=== PATIENT | female | born 1970 | race Caucasian/White ===

== ENCOUNTER 2018-10-08 00:57 | Emergency (ER) | payer SELFPAY ==
[2018-10-08] MEDS ORDERED: LISI20TA29 PO (01:12)
[2018-10-08] MEDS ORDERED: ASPI-1471 PO (01:12)
--- NOTE | 2018-10-08 01:17 | ER Report ---
History and Physical Time Seen By MD: 01:17 Hx. of Stated Complaint: PT REPORTS FEELING ANXIOUS AND THAT SOMETHING JUST HAS NOT FELT RIGHT SINCE YESTERDAY. SHE ALSO REPORTS HEART RACING. PT VISITING FROM [place]. HPI/ROS CHIEF COMPLAINT: Chest fluttering and pressure HISTORY OF PRESENT ILLNESS: This is a 48-year-old female. She is visiting here from [place], moving her daughter out of the dorms at the [facility]. Tonight while trying to sleep, she felt a fluttering feeling in her chest as well as a little bit of pressure. Because of this, she could not sleep. Her mother has a history of dying at age 55 from heart problems. She does see a log stacker operator and has had echocardiogram and other workup which has been negative to date. She does take some lisinopril for blood pressure and blood pressures a little elevated right now. She is not feeling major shortness of breath but is at altitude, has not had any problems when she is visited briefly on prior occasions. No fevers or chills. She does have mild cold symptoms and a cough. Cough is nonproductive. Denies any nausea or vomiting. Allergies: Coded Allergies: No Known Drug Allergies (Unverified , 10/08/18) Home Meds Reported Medications Aspirin (ASPIR 81) 81 Mg Tablet.dr, 81 MG PO QDAY, TAB 10/08/18 Lisinopril (LISINOPRIL) 20 Mg Tablet, 20 MG PO QDAY, TAB 10/08/18 Reviewed Nurses Notes: Yes Hx Substance Use Disorder: No Constitutional Vital Sign - Last 24 Hours 10/08/18 10/08/18 10/08/18 10/08/18 01:06 01:08 01:12 01:27 Temp 98.5 Pulse 99 97 90 Resp 16 9 B/P (MAP) 164/105 164/105 (124) Pulse Ox 90 95 98 O2 Delivery Room Air 10/08/18 10/08/18 10/08/18 10/08/18 01:30 01:42 01:47 02:00 Pulse 95 95 Resp 14 B/P (MAP) 141/91 (108) 135/90 (105) Pulse Ox 93 10/08/18 10/08/18 10/08/18 10/08/18 02:02 02:17 02:30 02:32 Pulse 88 91 87 Resp 16 5 14 B/P (MAP) 139/95 (110) Pulse Ox 92 90 90 Physical Exam General Appearance: The patient is alert. No acute distress. Eyes: Pupils are equal, round. No pallor, injection or icterus. ENT: Mucous membranes are moist. Normal oral mucosa. Posterior oropharynx is normal. Neck: Supple and non tender. Respiratory: Lungs are clear to auscultation. Cardiovascular: Regular rate and rhythm. No murmurs, gallops or rubs. Normal capillary refill. Trace edema lower extremity/ankles bilaterally. Gastrointestinal: Abdomen is soft and non tender. Nondistended. Neurological: Alert and oriented x3. Skin: Warm and dry. No rashes. DIFFERENTIAL DIAGNOSIS: After history and physical exam, differential diagnosis was considered for patient with palpitations and some chest pressure, possibly altitude related, possible anxiety related, we will check for other cardiac or other metabolic problem Medical Decision Making Data Points Result Diagram: 10/08/18 0150 10/08/18 0150 Laboratory Hematology Test 10/08/18 01:50 Red Blood Count 5.07 M/uL (4.17-5.56) Mean Corpuscular Volume 82.8 fL (80.0-96.0) Mean Corpuscular Hemoglobin 27.6 pg (26.0-33.0) Mean Corpuscular Hemoglobin Concent 33.3 g/dL (32.0-36.0) Red Cell Distribution Width 14.8 % (11.5-14.5) Mean Platelet Volume 9.2 fL (7.2-11.1) Neutrophils (%) (Auto) 62.4 % (39.4-72.5) Lymphocytes (%) (Auto) 25.8 % (17.6-49.6) Monocytes (%) (Auto) 9.7 % (4.1-12.4) Eosinophils (%) (Auto) 1.4 % (0.4-6.7) Basophils (%) (Auto) 0.7 % (0.3-1.4) Nucleated RBC Relative Count (auto) 0.0 /100WBC Neutrophils # (Auto) 4.0 K/uL (2.0-7.4) Lymphocytes # (Auto) 1.6 K/uL (1.3-3.6) Monocytes # (Auto) 0.6 K/uL (0.3-1.0) Eosinophils # (Auto) 0.1 K/uL (0.0-0.5) Basophils # (Auto) 0.0 K/uL (0.0-0.1) Nucleated RBC Absolute Count (auto) 0.00 K/uL D-Dimer Quantitative (PE/DVT) < 0.27 ug/ml (0-0.50) Sodium Level 138 mmol/L (137-145) Potassium Level 3.6 mmol/L (3.5-5.0) Chloride Level 104 mmol/L (98-107) Carbon Dioxide Level 27 mmol/L (22-31) Blood Urea Nitrogen 11 mg/dl (7-18) Creatinine 0.80 mg/dl (0.52-1.04) Glomerular Filtration Rate Calc > 60.0 Random Glucose 107 mg/dl (75-110) Calcium Level 9.3 mg/dl (8.4-10.2) Total Bilirubin 0.2 mg/dl (0.2-1.3) Aspartate Amino Transf (AST/SGOT) 20 U/L (0-35) Alanine Aminotransferase (ALT/SGPT) 18 U/L (0-56) Alkaline Phosphatase 83 U/L (0-126) Troponin I < 0.012 ng/ml B-Type Natriuretic Peptide < 5 pg/ml (0-100) Total Protein 7.3 g/dl (6.3-8.2) Albumin 4.1 g/dl (3.5-5.0) Chemistry Test 10/08/18 01:50 White Blood Count 6.4 k/uL (4.5-11.0) Red Blood Count 5.07 M/uL (4.17-5.56) Hemoglobin 14.0 g/dL (12.0-16.0) Hematocrit 42.0 % (34.0-47.0) Mean Corpuscular Volume 82.8 fL (80.0-96.0) Mean Corpuscular Hemoglobin 27.6 pg (26.0-33.0) Mean Corpuscular Hemoglobin Concent 33.3 g/dL (32.0-36.0) Red Cell Distribution Width 14.8 % (11.5-14.5) Platelet Count 241 K/uL (150-450) Mean Platelet Volume 9.2 fL (7.2-11.1) Neutrophils (%) (Auto) 62.4 % (39.4-72.5) Lymphocytes (%) (Auto) 25.8 % (17.6-49.6) Monocytes (%) (Auto) 9.7 % (4.1-12.4) Eosinophils (%) (Auto) 1.4 % (0.4-6.7) Basophils (%) (Auto) 0.7 % (0.3-1.4) Nucleated RBC Relative Count (auto) 0.0 /100WBC Neutrophils # (Auto) 4.0 K/uL (2.0-7.4) Lymphocytes # (Auto) 1.6 K/uL (1.3-3.6) Monocytes # (Auto) 0.6 K/uL (0.3-1.0) Eosinophils # (Auto) 0.1 K/uL (0.0-0.5) Basophils # (Auto) 0.0 K/uL (0.0-0.1) Nucleated RBC Absolute Count (auto) 0.00 K/uL D-Dimer Quantitative (PE/DVT) < 0.27 ug/ml (0-0.50) Glomerular Filtration Rate Calc > 60.0 Calcium Level 9.3 mg/dl (8.4-10.2) Total Bilirubin 0.2 mg/dl (0.2-1.3) Aspartate Amino Transf (AST/SGOT) 20 U/L (0-35) Alanine Aminotransferase (ALT/SGPT) 18 U/L (0-56) Alkaline Phosphatase 83 U/L (0-126) Troponin I < 0.012 ng/ml B-Type Natriuretic Peptide < 5 pg/ml (0-100) Total Protein 7.3 g/dl (6.3-8.2) Albumin 4.1 g/dl (3.5-5.0) Coagulation Test 10/08/18 01:50 D-Dimer Quantitative (PE/DVT) < 0.27 ug/ml EKG/Imaging EKG Interpretation 12 lead EKG: Rhythm: Normal sinus rhythm, rate 84 [place]: normal QRS: normal ST segments: normal Imaging CHEST SINGLE AP 10/08/2018 02:14 hours. HISTORY: Chest pain for one day. Cough. COMPARISON: None. TECHNIQUE: Portable AP view of the chest. FINDINGS: Tubes/lines/hardware: None. Pulmonary/pleura: Lungs are clear. There is no pneumothorax or pleural effusion. Cardiomediastinal: Cardiac and mediastinal silhouettes are within normal limits. Bones/soft tissues: No acute osseous abnormality. The visible abdomen is normal. IMPRESSION: 1. No acute cardiopulmonary process. Report Dictated By: Ghada Evans at 10/08/2018 2:17 AM ED Course/Re-evaluation Clinical Indication for ER IV: IV Access ED Course Workup including labs, EKG and chest x-ray are negative. Reviewed this with the patient. Unsure why she is feeling palpitations. Heart rhythm has been normal on heart monitor. She will be returning to [place] later this morning. No changes in medication. Blood pressure and essentially elevated but has come down well. Decision to Disposition Date: October 08, 2018 Decision to Disposition Time: 02:34 Depart Departure Latest Vital Signs Vital Signs Date Time Temp Pulse Resp B/P (MAP) Pulse Ox O2 Delivery O2 Flow Rate FiO2 10/08/18 02:32 87 14 90 10/08/18 02:30 139/95 (110) 10/08/18 01:06 98.5 Room Air Impression: Primary Impression: Palpitations with regular cardiac rhythm Condition: Improved Disposition: HOME OR SELF-CARE Patient Instructions: Palpitations (ED) Additional Instructions: Labs, EKG and chest x-ray tonight were normal. Your heart rhythm has remained normal as well. Blood pressure was initially high, but is better now. We are unsure why you were feeling palpitations or fluttering with pressure. This could have been the elevation, or stress, but no problems found tonight. Follow-up with your doctor when you return home. NABILA DOLL MD October 08, 2018 01:17
[2018-10-08] MEDS ORDERED: ASPIRIN 81 MG CHEW PO ONE (01:35)
--- NOTE | 2018-10-08 01:59 | EKG ---
[place] [facility] [place] NAME: KHUSHBU KING : [id number] MR: [id number] V: [id number] EXAM DATE: ORDERING PHYSICIAN: NABILA DOLL TECHNOLOGIST: DAVID Test Reason : CHEST PAIN Blood Pressure : / mmHG Vent. Rate : 084 BPM Atrial Rate : 084 BPM P-R Int : 132 ms QRS Dur : 094 ms QT Int : 396 ms P-R-T Axes : 065 069 060 degrees QTc Int : 467 ms Normal sinus rhythm Normal ECG No previous ECGs available Confirmed by HAWA FERRELL ([id number]) on 10/08/2018 2:13:44 AM Referred By: Confirmed By:HAWA FERRELL
[2018-10-08 02:05] LABS: PLATELET COUNT, AUTOMATED 241 K/uL (150-450)
--- NOTE | 2018-10-08 02:22 | RADIOLOGY IMAGING REPORT ---
FACILITY: [facility] [place] PATIENT NAME: America Sutton : 1970 MR: [id number] V: [id number] EXAM DATE: ORDERING PHYSICIAN: NABILA DOLL TECHNOLOGIST: Location: [facility] [place] Patient: America Sutton : 1970 Visit/Account:[id number] Date of Sevice: 10/08/2018 CHEST SINGLE AP 10/08/2018 02:14 hours. HISTORY: Chest pain for one day. Cough. COMPARISON: None. TECHNIQUE: Portable AP view of the chest. FINDINGS: Tubes/lines/hardware: None. Pulmonary/pleura: Lungs are clear. There is no pneumothorax or pleural effusion. Cardiomediastinal: Cardiac and mediastinal silhouettes are within normal limits. Bones/soft tissues: No acute osseous abnormality. The visible abdomen is normal. IMPRESSION: 1. No acute cardiopulmonary process. Report Dictated By: Ghada Evans at 10/08/2018 2:17 AM Report E-Signed By: Ghada Evans at 10/08/2018 2:18 AM WSN:[id number]
[2018-10-08 02:30] VITALS: BP 139/95
== END 2018-10-08 02:44 | disposition home or self-care (01) ==
LOC: ER 01:05
DX: R00.2 Palpitations (principal); I49.8 Other specified cardiac arrhythmias
CPT/HCPCS: 71045; 82040; 82247; 82310; 82374; 82435; 82565; 82947; 83880; 84075; 84132; 84155; 84295; 84450; 84460; 84484; 84520; 85025; 85379; 93005; 99284